=== PATIENT | male | born 1945 | race Caucasian/White ===

== ENCOUNTER 2019-06-20 03:07 | Emergency (ER) | payer OTHER, BC ==
--- OUTSIDE RECORDS SUMMARY | 2019-06-20 03:10 | XMS REPORT ---
:1945 Author Organization [facility] Address [address] [place] [address] Care Team Providers Name Role Phone Unavailable Unavailable Unavailable Payers Payer Name Policy Type Policy Number Effective Date Expiration Date Problems This patient has no known problems. Allergies, Adverse Reactions, Alerts This patient has no known allergies or adverse reactions. Medications This patient has no known medications. Results Test Description Test Time Test Comments Text Results Atomic Results Result Comments - MRI C-SPINE W/O CONT 2019-05-13 14:18:00 Patient Name: KEVIN HANDY Unit No: [id number] EXAMS: CPT CODE: [id number] MRI C-SPINE W/O CONT 77290 DIAGNOSIS: 1. At C2-3 there is no evidence for disc bulge or herniation, bony canal or foraminal stenosis. 2. At C3-4 there is 2 mm of disc bulging with mild left and moderate right foraminal narrowing. Bilateral facet degeneration is present greater on the left. The canal is stenotic with an AP diameter of 10 mm. 3. At C4-5 there is 2 mm of disc bulging and mildly increased T2-weighted cord signal consistent with myelomalacia. No foraminal narrowing is seen. The canal is stenotic with an AP diameter of 11 mm. Asymmetric right facet degeneration is present. 4. At C5-6 there is endplate spur formation and disc bulging with mild foraminal narrowing. The canal is stenotic with an AP diameter of 11 mm. 5. At C6-7 there is 3 mm of disc bulging impinging on the cord with moderate bilateral foraminal narrowing. The canal is stenotic with an AP diameter of 11 mm. 6. At C7-T1 there is no evidence for disc bulge or herniation, bony canal or foraminal stenosis. COMMENT: COMPARISON: No prior exams available. Scans were performed in the sagittal and axial planes utilizing T1, gradient echo, T2 and inversion recovery images. Endplate and disc degeneration is seen from C5 to C7. The remaining solid desiccated. Mild abnormal cord signal is seen as noted. The cord appears normal in size. at 1418 Reported and signed by: Dominick Lipscomb MD CC: Bettie Jacobo M.D. Technologist: CHINA RANGEL. RT(R) Transcribed D/ (0853) Ana Luisa [facility] NAME: KEVIN HANDY [address] [facility] PHYS: Tremayne Aranda MD : 1945 AGE: 74 SEX: M [place] [address] LOC: Y.MRI PHONE #: [phone] EXAM DATE: 05/13/2019 STATUS: REG CLI FAX #: [phone] RAD #: D/C DT PAGE 1 Signed Report Patient Name: KEVIN HANDY Unit No: [id number] EXAMS: CPT CODE: [id number] MRI C-SPINE W/O CONT [id number] <Continued> Orig Print D/T: S: 05/13/2019 (6880) [facility] NAME: KEVIN HANDY [address] [facility] PHYS: Tremayne Aranda MD : 1945 AGE: 74 SEX: M [place] [address] LOC: Y.MRI PHONE #: [phone] EXAM DATE: 05/13/2019 STATUS: REG CLI FAX #: [phone] RAD #: D/C DT PAGE 2 Signed Report
[2019-06-20 03:29] LABS: Basophils % 1.2 % (0-1.3); Hematocrit 46.5 % (39.6-49.0); Lymphocytes % 29.7 % (15.3-44.8); MPV 8.7 fL (7.6-11.3)
[2019-06-20] MEDS ORDERED: MORPHINE 4 MG/ML SYR ONE ×2 (03:42→04:32)
[2019-06-20] MEDS ORDERED: ONDANSETRON 4 MG/2 ML VIAL ONE (03:42)
[2019-06-20 03:56] LABS: Albumin 3.4 g/dL (3.4-5.0); Bilirubin Direct 0.2 mg/dL (0-0.2); Bilirubin Total 0.4 mg/dL (0.2-1.0); Potassium 3.6 mmol/L (3.5-5.1); Protein, Total 6.8 g/dL (6.4-8.2)
[2019-06-20 05:08] LABS: Urine Appearance TURBID; Urine Blood 3+ (NEG); Urine Color RED; Urine Glucose NEGATIVE (NEG); Urine Protein 2+ (NEG); Urine Specific Gravity 1.025 (1.005-1.030)
[2019-06-20] MEDS ORDERED: TAMSULOSIN 0.4 MG SR CAP ONE (05:11)
[2019-06-20] MEDS ORDERED: KETOROLAC 30 MG/ML INJ ONE (05:11)
[2019-06-20] MEDS ORDERED: MAGNESIUM SULFATE 1 gm IVPB 1 GM/100 ML BAG IV ONE (05:12)
[2019-06-20 05:19] LABS: Urine Bacteria 20-50 /HPF (NONE SEEN); Urine Culture Reflex Order NOT NEEDED; Urine RBC TNTC /HPF (NONE SEEN)
--- NOTE | 2019-06-20 06:21 | ER ---
Nurse's Notes [facility] Name: Zach Hunt Age: 74 yrs Sex: Male : 1945 Arrival Date: 06/20/2019 Time: 03:12 Bed 15 Private MD: Diagnosis: Ureterolithiasis Presentation: 06/20 03:10 Presenting complaint: Patient states: I have severe lower left abdominal pain that jb4 started about an hour ago. Transition of care: patient was not received from another setting of care. Onset of symptoms was June 20, 2019. Risk Assessment: Do you want to hurt yourself or someone else? Patient reports no desire to harm self or others. Initial Sepsis Screen: Does the patient meet any 2 criteria? RR > 20 per min. Does the patient have a suspected source of infection? Yes: Acute abdominal pain. Care prior to arrival: None. 03:10 Method Of Arrival: Wheelchair jb4 03:10 Acuity: CHAYA 3 jb4 Historical: - Allergies: 03:12 No Known Allergies; jb4 - Home Meds: 03:35 pravastatin oral oral [Active]; blood pressure medication [Active]; citalopram oral jb4 [Active]; - PMHx: 03:12 Arthritis; jb4 03:35 Anxiety; Hypertension; Hyperlipidemia; jb4 - PSHx: 03:12 Knee surgery; jb4 - Immunization history:: Adult Immunizations up to date. - Social history:: Smoking status: Patient/guardian denies using tobacco, Patient uses alcohol, occasionally. - Ebola Screening: : No symptoms or risks identified at this time. - Family history:: not pertinent. - Hospitalizations: : No recent hospitalization is reported. Screenin:10 Abuse screen: Denies threats or abuse. Nutritional screening: No deficits noted. jb4 Tuberculosis screening: No symptoms or risk factors identified. Fall Risk IV access (20 points). Gait- Impaired (20 pts.). Total Hong Fall Scale indicates Low Risk Score (25-44 pts). Fall prevention measures have been instituted. Side Rails Up X 2 Placed close to Nursing Station Frequent Obs/Assesments occuring Family Present and informed to notify staff if they need to leave bedside As available Patient and Family Educated on Fall Prevention Program and strategies. Assessment: 03:10 General: Appears in no apparent distress. uncomfortable, Behavior is cooperative, jb4 anxious. Pain: Complains of pain in left lower quadrant Pain radiates to posterior aspect of left lateral abdomen Pain currently is 10 out of 10 on a pain scale. Pain began 1 hour ago. Neuro: Level of Consciousness is awake, alert, obeys commands, Oriented to person, place, time, situation. Cardiovascular: Patient's skin is warm and dry. Respiratory: Airway is patent Respiratory effort is even, unlabored, Respiratory pattern is symmetrical, tachypnea. GI: Reports lower abdominal pain, constipation, nausea. : No signs and/or symptoms were reported regarding the genitourinary system. EENT: No signs and/or symptoms were reported regarding the EENT system. Derm: Skin is intact, Skin is pink, warm \T\ dry. Musculoskeletal: Circulation, motion, and sensation intact. Range of motion: intact in all extremities. 04:10 Reassessment: Patient appears in no apparent distress at this time. Patient and/or jb4 family updated on plan of care and expected duration. Pain level reassessed. Patient is alert, oriented x 3, equal unlabored respirations, skin warm/dry/pink. Pt is back from CT reports feeling better but still very uncomfortable and in pain, asked for more pain medication. Provider notified, see MAR for orders. 05:04 Reassessment: Patient appears in no apparent distress at this time. Patient and/or jb4 family updated on plan of care and expected duration. Pain level reassessed. Patient is alert, oriented x 3, equal unlabored respirations, skin warm/dry/pink. Patient states feeling better. 06:05 Reassessment: Patient appears in no apparent distress at this time. Patient and/or jb4 family updated on plan of care and expected duration. Pain level reassessed. Patient is alert, oriented x 3, equal unlabored respirations, skin warm/dry/pink. Patient states feeling better. 06:37 Reassessment: Patient appears in no apparent distress at this time. Patient and/or jb4 family updated on plan of care and expected duration. Pain level reassessed. Patient is alert, oriented x 3, equal unlabored respirations, skin warm/dry/pink. PT assisted to his vehicle via wheelchair, discharged home with , pt and verbalized understanding of d/c and follow up instructions. Patient states feeling better. Vital Signs: 03:12 BP 152 / 64; Pulse 59; Resp 24; Temp 97.2(O); Pulse Ox 100% on R/A; Weight 113.4 kg jb4 (R); Height 6 ft. 1 in. (185.42 cm); Pain 10/10; 04:05 BP 138 / 71; Pulse 61; Resp 20; Pulse Ox 100% on R/A; jb4 05:04 BP 131 / 62; Pulse 61; Resp 18; Pulse Ox 100% on R/A; jb4 06:00 BP 119 / 71; Pulse 61; Resp 18; Pulse Ox 100% on R/A; jb4 03:12 Body Mass Index 32.98 (113.40 kg, 185.42 cm) jb4 ED Course: 03:10 Demario Connor MD is Attending Physician. rn 03:10 Ethan Hurt, SANJEEV is Primary Nurse. jb4 03:10 Patient has correct armband on for positive identification. Bed in low position. Call jb4 light in reach. Side rails up X 1. Pulse ox on. NIBP on. 03:11 Triage completed. jb4 03:12 Patient arrived in ED. ds1 03:12 Arm band placed on left wrist. jb4 03:20 Initial lab(s) drawn, by me, sent to lab. Inserted saline lock: 20 gauge in right jb4 antecubital area, using aseptic technique. Blood collected. 04:10 CT Stone Protocol In Process Unspecified. EDMS 06:20 Memo Pablo MD is Referral Physician. rn 06:37 No provider procedures requiring assistance completed. IV discontinued, intact, jb4 bleeding controlled, No redness/swelling at site. Pressure dressing applied. Administered Medications: 03:28 Drug: Zofran 4 mg Route: IVP; Site: right antecubital; jb4 03:50 Follow up: Response: No adverse reaction; Nausea is decreased jb4 03:30 Drug: morphine 4 mg Route: IVP; Site: right antecubital; jb4 04:00 Follow up: Response: No adverse reaction; Pain is decreased jb4 04:19 Drug: morphine 4 mg Route: IVP; Site: right antecubital; jb4 04:40 Follow up: Response: No adverse reaction; Pain is decreased jb4 05:00 Drug: TORadol - Ketorolac 15 mg Route: IVP; Site: right antecubital; jb4 05:30 Follow up: Response: No adverse reaction; Pain is decreased jb4 05:00 Drug: Flomax 0.4 mg Route: PO; jb4 06:07 Follow up: Response: No adverse reaction jb4 05:02 Drug: Magnesium Sulfate 1 grams Route: IVPB; Infused Over: 1 hrs; Site: right jb4 antecubital; 06:02 Follow up: Response: No adverse reaction; IV Status: Completed infusion; IV Intake: jb4 100ml Intake: 06:02 IV: 100ml; Total: 100ml. jb4 Outcome: 06:21 Discharge ordered by . rn 06:37 Discharged to home via wheelchair, with significant other. jb4 06:37 Condition: stable 06:37 Discharge instructions given to patient, significant other, Instructed on discharge instructions, follow up and referral plans. medication usage, Demonstrated understanding of instructions, follow-up care, medications, Prescriptions given X 5 06:39 Patient left the ED. jb4 Signatures: Dispatcher [employer] [facility] Megan Cohen ds1 Demario Connor MD MD rn Bryson, James, RN RN jb4
--- NOTE | 2019-06-20 06:21 | EDPHYS ---
Physician Documentation [facility] Name: Zach Hunt Age: 74 yrs Sex: Male : 1945 Arrival Date: 06/20/2019 Time: 03:12 Bed 15 Private MD: ED Physician Demario Connor HPI: 06/20 03:12 This 74 yrs old Male presents to ER via Wheelchair with complaints of rn Abdominal Pain. 03:12 The patient presents with abdominal pain in the left lower quadrant. Onset: The rn symptoms/episode began/occurred 1 hour(s) ago. The symptoms do not radiate. Associated signs and symptoms: none. Modifying factors: The symptoms are alleviated by nothing, the symptoms are aggravated by nothing. Severity of pain: At its worst the pain was moderate in the emergency department the pain is unchanged. The patient has not experienced similar symptoms in the past. The patient has not recently seen a physician. Sudden onset left abd pain, began 1 hour MILL WORK, no trauma, no vomiting/diarrhea.. Historical: - Allergies: 03:12 No Known Allergies; jb4 - Home Meds: 03:35 pravastatin oral oral [Active]; blood pressure medication [Active]; citalopram oral jb4 [Active]; - PMHx: 03:12 Arthritis; jb4 03:35 Anxiety; Hypertension; Hyperlipidemia; jb4 - PSHx: 03:12 Knee surgery; jb4 - Immunization history:: Adult Immunizations up to date. - Social history:: Smoking status: Patient/guardian denies using tobacco, Patient uses alcohol, occasionally. - Ebola Screening: : No symptoms or risks identified at this time. - Family history:: not pertinent. - Hospitalizations: : No recent hospitalization is reported. ROS: 03:12 Constitutional: Negative for fever, chills, and weight loss, Eyes: Negative for injury, rn pain, redness, and discharge, Cardiovascular: Negative for chest pain, palpitations, and edema, Respiratory: Negative for shortness of breath, cough, wheezing, and pleuritic chest pain, Abdomen/GI: + LLQ abd pain Back: Negative for injury and pain, : Negative for injury, bleeding, discharge, and swelling, MS/Extremity: Negative for injury and deformity, Skin: Negative for injury, rash, and discoloration, Neuro: Negative for headache, weakness, numbness, tingling, and seizure. Exam: 03:12 Constitutional: This is a well developed, well nourished patient who is awake, alert, rn appears uncomfortable Head/Face: Normocephalic, atraumatic. Eyes: Pupils equal round and reactive to light, extra-ocular motions intact. Lids and lashes normal. Conjunctiva and sclera are non-icteric and not injected. Cornea within normal limits. Periorbital areas with no swelling, redness, or edema. Respiratory: mild tachypnea, clear bilateral breath sounds Abdomen/GI: soft, + LLQ tenderness, no masses Back: No spinal tenderness. No costovertebral tenderness. Full range of motion. MS/ Extremity: Pulses equal, no cyanosis. Neurovascular intact. Full, normal range of motion. Equal circumference. Neuro: Awake and alert, GCS 15, oriented to person, place, time, and situation. Cranial nerves II-XII grossly intact. Motor strength 5/5 in all extremities. Sensory grossly intact. Cerebellar exam normal. Normal gait. Vital Signs: 03:12 BP 152 / 64; Pulse 59; Resp 24; Temp 97.2(O); Pulse Ox 100% on R/A; Weight 113.4 kg jb4 (R); Height 6 ft. 1 in. (185.42 cm); Pain 10/10; 04:05 BP 138 / 71; Pulse 61; Resp 20; Pulse Ox 100% on R/A; jb4 05:04 BP 131 / 62; Pulse 61; Resp 18; Pulse Ox 100% on R/A; jb4 06:00 BP 119 / 71; Pulse 61; Resp 18; Pulse Ox 100% on R/A; jb4 03:12 Body Mass Index 32.98 (113.40 kg, 185.42 cm) jb4 MDM: 03:10 Patient medically screened. rn 05:24 ED course: Patient currently pain free. Will continue to observe in ER for further pain rn and need for pain medication.. 06:18 Differential diagnosis: diverticulitis, Ureterolithiasis, urinary tract infection. Data rn reviewed: vital signs, nurses notes, lab test result(s), radiologic studies, CT scan, and as a result, I will discharge patient. Counseling: I had a detailed discussion with the patient and/or guardian regarding: the historical points, exam findings, and any diagnostic results supporting the discharge/admit diagnosis, lab results, radiology results, the need for outpatient follow up, to return to the emergency department if symptoms worsen or persist or if there are any questions or concerns that arise at home. Response to treatment: the patient's symptoms have markedly improved after treatment. Special discussion: I discussed with the patient/guardian in detail that at this point there is no indication for admission to the hospital. It is understood, however, that if the symptoms persist or worsen the patient needs to return immediately for re-evaluation. Based on the history and exam findings, there is no indication for further emergent testing or inpatient evaluation. I discussed with the patient/guardian the need to see the urologist for further evaluation of the symptoms. ED course: Patient observed here, no further pain, comfortable going home, will dc home, sees Dr. Pablo, urged to return if pain worsens or unbearable. Given great response to pain medication will give trial of passage at home. . 06/20 03:11 Order name: Basic Metabolic Panel; Complete Time: 04:39 rn 06/20 03:11 Order name: CBC with Diff; Complete Time: 04:39 rn 06/20 03:11 Order name: Hepatic Function; Complete Time: 04:39 rn 06/20 03:11 Order name: Lipase; Complete Time: 04:39 rn 06/20 03:11 Order name: Urine Culture rn 06/20 03:11 Order name: CT Stone Protocol 06/20 05:06 Order name: Urinalysis W/Microscopic; Complete Time: 05:24 EDNC 06/20 03:11 Order name: IV Saline Lock; Complete Time: 03:24 rn 06/20 03:11 Order name: Labs collected and sent; Complete Time: 03:24 rn 06/20 03:11 Order name: Urine Dipstick-Ancillary (obtain specimen); Complete Time: 05:05 rn Administered Medications: 03:28 Drug: Zofran 4 mg Route: IVP; Site: right antecubital; jb4 03:50 Follow up: Response: No adverse reaction; Nausea is decreased jb4 03:30 Drug: morphine 4 mg Route: IVP; Site: right antecubital; jb4 04:00 Follow up: Response: No adverse reaction; Pain is decreased jb4 04:19 Drug: morphine 4 mg Route: IVP; Site: right antecubital; jb4 04:40 Follow up: Response: No adverse reaction; Pain is decreased jb4 05:00 Drug: TORadol - Ketorolac 15 mg Route: IVP; Site: right antecubital; jb4 05:30 Follow up: Response: No adverse reaction; Pain is decreased jb4 05:00 Drug: Flomax 0.4 mg Route: PO; jb4 06:07 Follow up: Response: No adverse reaction jb4 05:02 Drug: Magnesium Sulfate 1 grams Route: IVPB; Infused Over: 1 hrs; Site: right jb4 antecubital; 06:02 Follow up: Response: No adverse reaction; IV Status: Completed infusion; IV Intake: jb4 100ml Disposition: 06/20/19 06:21 Discharged to Home. Impression: Ureterolithiasis. - Condition is Stable. - Discharge Instructions: Kidney Stones, Dietary Guidelines to Help Prevent Kidney Stones. - Prescriptions for Zofran ODT 4 mg Oral tablet,disintegrating - place 1 tablet by TRANSLINGUAL route every 8 hours As needed For nausea as needed; 20 tablet. Ibuprofen 800 mg Oral Tablet - take 1 tablet by ORAL route every 12 hours As needed for pain as needed; take with food; 20 tablet. Tylenol- Codeine #3 300-30 mg Oral Tablet - take 2 tablets by ORAL route every 6 hours As needed For pain as needed; 30 tablet. Flomax 0.4 mg Oral Capsule, Sust. Release 24 hr - take 1 capsule by ORAL route once daily 1/2 hour following the same meal each day; take until pain free for 24 hours.; 5 capsule. Cipro 500 mg Oral Tablet - take 1 tablet by ORAL route every 12 hours for 7 days; 14 tablet. - Medication Reconciliation Form, Thank You Letter, Antibiotic Education, Prescription Opioid Use form. - Follow up: Memo Pablo MD; When: As needed; Reason: Recheck today's complaints, Re-evaluation by your physician. - Problem is new. - Symptoms have improved. Signatures: Dispatcher [employer] Demario Jesus MD MD rn Bryson, James, RN RN jb4 Corrections: (The following items were deleted from the chart) 05:06 03:13 UA MICROSCOPIC+U.LAB.BRZ ordered. [facility] 06:39 06:21 06/20/2019 06:21 Discharged to Home. Impression: Ureterolithiasis. Condition is jb4 Stable. Forms are Medication Reconciliation Form, Thank You Letter, Antibiotic Education, Prescription Opioid Use. Follow up: Memo Pablo; When: As needed; Reason: Recheck today's complaints, Re-evaluation by your physician. Problem is new. Symptoms have improved. rn
[2019-06-20 06:52] VITALS: TEMP 97.2; O2SAT 100
[2019-06-20 06:56] VITALS: BP 119/71
--- NOTE | 2019-06-21 10:42 | RAD REPORT ---
EXAM DESCRIPTION: CT - Stone Protocol - 06/20/2019 4:44 am CLINICAL HISTORY: Left abdominal pain, acute onset. COMPARISON: CT abdomen and pelvis with contrast 03/12/2013. TECHNIQUE: Axial unenhanced CT imaging of the abdomen and pelvis performed. Reformatted coronal and sagittal images reviewed. A dose reduction technique was utilized with automated exposure control according to patient size. FINDINGS: LOWER THORAX: Clear lung bases. Normal cardiac size. Calcified inferior right basilar ple ural plaques. ABDOMEN: LIVER/GALLBLADDER: The liver contains numerous scattered benign-appearing cysts. The largest is with in the inferior right lobe, 3.2 cm. A few scattered calcifications due to granulomas are also present . Normal gallbladder. SPLEEN/PANCREAS: Normal spleen and pancreas. KIDNEYS/ADRENAL GLANDS: Normal adrenal glands. Anterior right renal 4.9 cm cysts. Mild dilatation of the left renal pelvis. AP pelvis is 1.2 cm. There is left perinephric edema. Proximal left ureteral 8 mm stone. RETROPERITONEAL VESSELS/NODES: There is significant aorta atherosclerosis. No aneurysm. Normal calib er inferior vena cava. No adenopathy. BOWEL: There is a moderate hiatal hernia. Normal remaining stomach. Small bowel loops appear normal. Normal right lower quadrant appendix and colon. MESENTERY/PERITONEUM: No adenopathy or ascites. No free air. PELVIS: BLADDER: Unremarkable bladder. GENITAL ORGANS: Prostate is 5.7 x 5.6 x 4.7 cm with dystrophic calcifications. PERITONEUM: Prominent fat along the right spermatic cord. BONES AND SOFT TISSUES: Generalized moderate lumbar spondylitic change. Bony pelvis and hips are int act. IMPRESSION: 1. Left proximal ureteral 8 mm obstructing stone with mild left hydronephrosis and obstr uctive uropathy. 2. Anterior right renal parapelvic cyst. 3. Numerous hepatic cysts with granulomas. 4. Moderate hiatal hernia. 5. Prostatomegaly.. Electronically signed by: Hien Cameron DO 06/20/2019 4:40 AM CDT Due to temporary technical issues with the PACS/Fluency reporting system, reports are being signed by the in house radiologist as a courtesy to ensure prompt reporting. The interpreting radiologist is f ully responsible for the content of the report.
== END 2019-06-20 06:39 | disposition home or self-care (01) ==
LOC: ER 03:07
DX: N20.1 Calculus of ureter (principal); I10 Essential (primary) hypertension; E78.5 Hyperlipidemia, unspecified; F41.9 Anxiety disorder, unspecified
CPT/HCPCS: 96365; 87088; 85025; 81001; 87086; 80048; 36415; 80076; 83690; 76377; 74176; 96375; 99284; J3475; J2405

== ENCOUNTER 2020-01-04 06:27 | Emergency (ER) | payer OTHER, BC ==
--- OUTSIDE RECORDS SUMMARY | 2020-01-04 06:29 | XMS REPORT ---
:1945 Author [facility] Address [address] [place] [address] Care Team Providers Name Role Phone Unavailable [...] 14:18:00 Patient Name: KEVIN HANDY Unit No: [id number] EXAMS: CPT CODE: [id number] MRI C-SPINE W/O CONT 97855 DIAGNOSIS: 1. At C2-3 there is no [...] M.D. Technologist: CHINA RANGEL. RT(R) Transcribed D/ (3879) Ana Luisa [facility] NAME: KEVIN HANDY [address] [facility] PHYS: Tremayne Aranda MD : 1945 AGE: 74 SEX: M [place] [address] LOC: Y.MRI PHONE #: [phone] EXAM DATE: 05/13/2019 STATUS: REG CLI FAX #: [phone] RAD #: D/C DT PAGE 1 Signed Report Patient Name: KEVIN HANDY Unit No: [id number] EXAMS: CPT CODE: [id number] MRI C-SPINE W/O CONT [id number] <Continued> Orig Print D/T: S: 05/13/2019 (5730) [facility] NAME: KEVIN HANDY [address] [facility] PHYS: Tremayne Aranda MD : 1945 AGE: 74 SEX: M [place] [address] LOC: Y.MRI PHONE #: [phone] EXAM DATE: 05/13/2019 STATUS: REG CLI FAX #: [phone] RAD #: D/C DT PAGE 2 Signed Report
[2020-01-04 07:15] LABS: Hematocrit 38.7 % (39.6-49.0); Lymphocytes % 25.1 % (15.3-44.8); MPV 7.9 fL (7.6-11.3); RBC Red Blood Cell Count 4.04 M/uL (4.33-5.43)
[2020-01-04] MEDS ORDERED: NA CHLORIDE 0.9% 1,000 ML ONE (07:20)
[2020-01-04] MEDS ORDERED: ONDANSETRON 4 MG/2 ML VIAL ONE (07:20)
[2020-01-04] MEDS ORDERED: FENTANYL CITR 100 MCG/2 ML ONE (07:20)
[2020-01-04 07:22] LABS: Protime INR 0.94
[2020-01-04 07:33] LABS: Albumin 2.9 g/dL (3.4-5.0); Bilirubin Direct 0.3 mg/dL (0-0.2); Bilirubin Total 0.7 mg/dL (0.2-1.0); Magnesium 1.9 mg/dL (1.8-2.4); Potassium 3.6 mmol/L (3.5-5.1)
--- NOTE | 2020-01-04 07:38 | RAD REPORT ---
EXAM DESCRIPTION: RAD - Chest Single View - 01/04/2020 7:11 am CLINICAL HISTORY: CHEST PAIN Chest pain. COMPARISON: Abdomen 1 View (KUB) dated 07/05/2019; Abdomen 1 View (KUB) dated 06/28/2019; Chest Pa And Lat (2 Views) dated 06/28/2019; CHEST PA AND LAT 2 VIEW dated 09/10/2011 FINDINGS: Portable technique limits examination quality. The lungs are emphysematous but clear. The heart is normal in size. No displaced fractures. IMPRESSION: COPD.
--- NOTE | 2020-01-04 08:45 | EKG ---
Test Date: 2020-01-04 Test Time: 06:56:45 Manager Package: MARIPOSA MEASUREMENT RESULTS: Intervals: Rate: 77 MA: 160 QRSD: 98 QT: 398 QTc: 450 [place]: P: 56 MA: 160 QRS: -10 T: 51 INTERPRETIVE STATEMENTS: Normal sinus rhythm Normal ECG Compared to ECG 06/28/2019 11:02:55 No significant changes Electronically Signed On 01-04-20 08:44:47 PIPE BENDING MACHINE OPERATOR by Jl Carrillo
--- NOTE | 2020-01-04 09:05 | RAD REPORT ---
EXAM DESCRIPTION: CT - Head C Spine Cap W Con - 01/04/2020 8:00 am CLINICAL HISTORY: Trauma, head and neck injury. Chest, abdomen and pelvis pain. fall injury. AMS;Pain COMPARISON: No comparisons TECHNIQUE: CT head without contrast. CT cervical spine without contrast with coronal and sagittal reformatted images. CT chest, abdomen and pelvis with IV contrast (approximately 100 mL nonionic IV contrast) with pagan l and sagittal reformatted images of the spine. All CT scans are performed using dose optimization technique as appropriate and may include automated exposure control or mA/KV adjustment according to patient size. FINDINGS: CT HEAD WITHOUT CONTRAST: No intracranial hemorrhage, hydrocephalus or extra-axial fluid collection. Mild generalized brain atr ophy is present with mild periventricular and deep white matter chronic microvascular ischemic change s. No areas of brain edema or midline shift. The paranasal sinuses and mastoids are clear. The calvarium is intact. Left-sided scalp hematoma note d. CT CERVICAL SPINE WITHOUT CONTRAST: No fracture or subluxation. Moderate lower cervical degenerative changes are present with disc thinni ng and posterior osteophyte. The prevertebral soft tissues are normal in thickness. CT CHEST, ABDOMEN, PELVIS WITH CONTRAST: The lungs are clear.No pneumothorax or pericardial/pleural fluid. Anterolateral left rib fractures af fecting the fourth, fifth, sixth ribs are noted. No evidence of intra-abdominal visceral injury, free fluid or free air. Calcified pleural plaque is p resent. Moderate axial hiatal hernia. Benign appearing hepatic and renal cysts. A large left gluteal hematoma suspected measuring 14 x 5 cm. No hip fracture identified. No pelvic fracture seen. IMPRESSION: Minimally displaced left anterolateral rib fractures without pneumothorax. Large soft tissue hematoma left gluteal region. Left-sided scalp hematoma.
--- NOTE | 2020-01-04 09:47 | ER ---
Nurse's Notes [facility] Name: Zach Hunt Age: 74 yrs Sex: Male : 1945 Arrival Date: 01/04/2020 Time: 06:28 Bed 7 Private MD: Diagnosis: Superficial injury of head;Hematoma left buttock;Avulsion of skin left forearm ;Multiple fractures of ribs, left side Presentation: 01/04 06:32 Presenting complaint: EMS states: "pt fell and hurt his left hip and got a skin tear to jd3 his left elbow. the pt also has ETOH on bord.". Transition of care: patient was not received from another setting of care. Onset of symptoms was January 04, 2020. Risk Assessment: Do you want to hurt yourself or someone else? Patient reports no desire to harm self or others. Initial Sepsis Screen: Does the patient meet any 2 criteria? No. Patient's initial sepsis screen is negative. Does the patient have a suspected source of infection? No. Patient's initial sepsis screen is negative. Care prior to arrival: 06:32 Method Of Arrival: EMS: [facility] jd3 06:32 Acuity: CHAYA 2 jd3 06:44 Mechanism of Injury: Fall from standing position. Trauma event details: Injury occurred j in the [facility], Injury occurred: at home. Trauma Activation: Alert Physician: ED Physician; Name: Tamela; Notified At: 06:36; Arrived At: 06:36 Physician: General Surgeon; Name: ; Notified At: 06:36; Arrived At: Physician: Radiology; Name: Tatiana; Notified At: 06:36; Arrived At: 06:36 Physician: Respiratory; Name: ; Notified At: 06:36; Arrived At: Physician: Lab; Name: ; Notified At: 06:36; Arrived At: Historical: - Allergies: 06:37 No Known Allergies; jd3 - Home Meds: 06:37 BLOOD PRESSURE MEDICATION [Active]; citalopram oral [Active]; pravastatin Oral [Active];jd3 - PMHx: 06:37 Anxiety; Arthritis; Hyperlipidemia; Hypertension; jd3 - PSHx: 06:37 Knee surgery; jd3 - Immunization history:: Adult Immunizations up to date. - Coronavirus screen:: The patient has NOT traveled to [place], [place], or [place] in the past 14 days. The patient has NOT had contact with known/suspected case of Coronavirus? Proceed with normal triage procedures. - Immunization history: Last tetanus immunization: unknown. - Social history:: Smoking status: Patient denies any tobacco usage or history of. Patient uses alcohol, on a daily basis. - Ebola Screening: : Patient negative for fever greater than or equal to 101.5 degrees Fahrenheit, and additional compatible Ebola Virus Disease symptoms. Screenin:44 Abuse screen: Denies threats or abuse. Nutritional screening: No deficits noted. jd3 Tuberculosis screening: No symptoms or risk factors identified. 06:46 Fall Risk Fall in past 12 months (25 points). Ambulatory Aid- None/Bed Rest/Nurse jd3 Assist (0 pts). Gait- Normal/Bed Rest/Wheelchair (0 pts) Mental Status- Oriented to own ability (0 pts). Total Hong Fall Scale indicates Low Risk Score (25-44 pts). Fall prevention measures have been instituted. Side Rails Up X 2 Placed close to Nursing Station Frequent Obs/Assesments occuring Family Present and informed to notify staff if they need to leave bedside. Primary Survey: 06:39 NO uncontrolled hemorrhage observed. A: The patient is alert. Airway: patent. jd3 Breathing/Chest: Respiratory pattern: regular, Respiratory effort: spontaneous, unlabored, Chest inspection: symmetrical rise and fall of the chest. Circulation: Pulses: palpable right radial artery, right dorsalis pedis artery, left radial artery and left dorsalis pedis artery. Skin color: pink, Skin temperature: warm. Disability Alert. Exposure/Environment: All clothing and personal items were removed. Forensic evidence collection is not deemed to be indicated at this time. Items placed in patient belonging bag. There is no evidence of uncontrolled external bleeding. Obvious injury(ies) are noted at this time: bruising noted to left hip. skin tear noted to left elbow. 07:15 Reassessment Airway Airway Patent Oxygen No O2 Oral cavity Clear Trachea Midline jd3 Breathing/Chest Respiratory pattern Regular Respiratory effort Spontaneous Unlabored Chest inspection Symmetrical Circulation Heart rhythm Sinus rhythm Pulses Palpable Color [place] Temperature Warm Disability Alert. Secondary Survey: 06:40 HEENT: No deficits noted. Gastrointestinal: No deficits noted. : No signs and/or jd3 symptoms were reported regarding the genitourinary system. Musculoskeletal: Circulation, motion, and sensation intact. Range of motion: intact in all extremities. Assessment: 06:41 General: Appears in no apparent distress. comfortable, Behavior is calm, cooperative, jd3 appropriate for age. Pain: Complains of pain in left hip and left elbow Quality of pain is described as aching, tender. Neuro: Level of Consciousness is awake, alert, obeys commands, Oriented to person, place, time, situation. EENT: No signs and/or symptoms were reported regarding the EENT system. Cardiovascular: Denies chest pain, Capillary refill < 3 seconds Patient's skin is warm and dry. Respiratory: Airway is patent Respiratory effort is even, unlabored, Respiratory pattern is regular, symmetrical, Denies cough, shortness of breath. GI: No signs and/or symptoms were reported involving the gastrointestinal system. Patient currently denies abdominal pain, diarrhea, nausea, vomiting. : No signs and/or symptoms were reported regarding the genitourinary system. Derm: Skin is intact, Skin is dry, Skin is normal, Skin temperature is warm. Musculoskeletal: Circulation, motion, and sensation intact. Range of motion: intact in all extremities. 07:23 Reassessment: Patient appears in no apparent distress at this time. Patient and/or sg family updated on plan of care and expected duration. Pain level reassessed. pt appears intoxicated, with loud boisterous speech, pt redirected and reminded is in the hospital with other patients. 09:12 Reassessment: Patient appears in no apparent distress at this time. pt noted to have sg swelling to the left buttocks, with dark purple bruising that stretches across the lower back. 09:30 Reassessment: Patient appears in no apparent distress at this time. Brett MUÑOZ at bedside sg assessing pt back side at this time, Brett MUÑOZ performing wound care and repair to skin tear and inury to the left forearm, left elbow. Winfred ED judit assisting pt at this time. Vital Signs: 06:38 BP 148 / 122; Pulse 102; Resp 17 S; Temp 97.3(TE); Pulse Ox 97% on R/A; Weight 99.79 kg jd3 (R); Height 6 ft. 3 in. (190.50 cm) (R); Pain 3/10; 06:48 BP 101 / 55; jd3 07:35 BP 142 / 99; Pulse 92; Resp 17 S; Pulse Ox 98% on R/A; sg 08:35 BP 140 / 88; Pulse 81; Resp 18; Temp 97.7; Pulse Ox 97% on R/A; sg 09:35 BP 140 / 80 (/reg); Pulse 87 MON; Resp 17 S; Temp 97.3; Pulse Ox 98% on R/A; sg 10:10 BP 138 / 72; Pulse 82; Resp 17; Temp 97.2; Pulse Ox 98% on R/A; sg 06:38 Body Mass Index 27.50 (99.79 kg, 190.50 cm) jd3 Kiara Coma Score: 06:45 Eye Response: spontaneous(4). Verbal Response: oriented(5). Motor Response: obeys jd3 commands(6). Total: 15. 07:35 Eye Response: spontaneous(4). Verbal Response: confused(4). Motor Response: obeys sg commands(6). Total: 14. 08:35 Eye Response: spontaneous(4). Verbal Response: confused(4). Motor Response: obeys sg commands(6). Total: 14. 09:35 Eye Response: spontaneous(4). Verbal Response: confused(4). Motor Response: obeys sg commands(6). Total: 14. 10:10 Eye Response: spontaneous(4). Verbal Response: confused(4). Motor Response: obeys sg commands(6). Total: 14. Trauma Score (Adult): 06:45 Eye Response: spontaneous(1); Verbal Response: oriented(1); Motor Response: obeys jd3 commands(2); Systolic BP: > 89 mm Hg(4); Respiratory Rate: 10 to 29 per min(4); Kiara Score: 15; Trauma Score: 12 07:35 Eye Response: spontaneous(1); Verbal Response: confused(1); Motor Response: obeys sg commands(2); Systolic BP: > 89 mm Hg(4); Respiratory Rate: 10 to 29 per min(4); [place] Score: 14; Trauma Score: 12 08:35 Eye Response: spontaneous(1); Verbal Response: confused(1); Motor Response: obeys sg commands(2); Systolic BP: > 89 mm Hg(4); Respiratory Rate: 10 to 29 per min(4); Kiara Score: 14; Trauma Score: 12 09:35 Eye Response: spontaneous(1); Verbal Response: confused(1); Motor Response: obeys sg commands(2); Systolic BP: > 89 mm Hg(4); Respiratory Rate: 10 to 29 per min(4); Kiara Score: 14; Trauma Score: 12 10:10 Eye Response: spontaneous(1); Verbal Response: confused(1); Motor Response: obeys sg commands(2); Systolic BP: > 89 mm Hg(4); Respiratory Rate: 10 to 29 per min(4); [place] Score: 14; Trauma Score: 12 ED Course: 06:28 Patient arrived in ED. ds1 06:33 Brett Smith PA is PHCP. jr8 06:33 Nicanor Rapp MD is Attending Physician. jr8 06:36 Triage completed. jd3 06:39 Arm band placed on. jd3 06:44 Patient has correct armband on for positive identification. Bed in low position. Call jd3 light in reach. Side rails up X2. Adult w/ patient. 06:45 Patient maintains SpO2 saturation greater than 95% on room air. jd3 06:46 Thermoregulation: warm blanket given to patient. jd3 06:48 Francisco Javier Nieto RN is Primary Nurse. jd3 07:00 Inserted saline lock: 20 gauge in right antecubital area, using aseptic technique. jd3 Blood collected. 07:27 Primary Nurse role handed off by Francisco Javier Nieto, SANJEEV sg 07:27 Markie Fraga, SANJEEV is Primary Nurse. sg 08:06 Basic Metabolic Panel Sent. sv 08:06 CBC with Diff Sent. sv 08:06 LFT's Sent. sv 08:06 Magnesium Sent. sv 08:06 NT PRO-BNP Sent. sv 08:06 PT-INR Sent. sv 08:06 ETOH Level Sent. sv 08:06 CT Traumagram (Head C Spine CAP W Con) Sent. sv 08:07 XRAY Chest (1 view) Sent. sv 09:10 Assisted with urinal. sg 10:10 No provider procedures requiring assistance completed. IV discontinued, intact, sg bleeding controlled, No redness/swelling at site. Pressure dressing applied. Administered Medications: 07:20 Drug: fentaNYL (PF) 25 mcg Route: IVP; Site: right antecubital; sg 08:00 Follow up: Response: No adverse reaction sg 07:20 Drug: Zofran 4 mg Route: IVP; Site: right antecubital; sg 08:00 Follow up: Response: No adverse reaction sg 07:20 Drug: NS 0.9% 1000 ml Route: IV; Rate: 1000 ml; Site: right antecubital; sg Intake: 09:40 in a urinal sg Output: 09:40 Urine: 400ml (Voided); Total: 400ml. sg 09:40 in a urinal sg Outcome: 09:46 Discharge ordered by . jrNaa 10:10 Discharged to home via wheelchair, with family. sg 10:10 Condition: good 10:10 Discharge instructions given to patient, family, Instructed on discharge instructions, follow up and referral plans. no drinking with medication, no driving heavy equipment, medication usage, safety practices, wound care, Demonstrated understanding of instructions, follow-up care, medications, wound care, Prescriptions given X 3. 10:10 Patient's length of stay in the Emergency Department was greater than 2 hours. due to sg provider needing a CT read from radiologist prior to dispoPatient's length of stay extended due to 10:12 Patient left the ED. dm5 Signatures: Marisabel Retana RN RN dm5 Daphne Ordoñez RN RN sv Gay, Steven, RN RN sg Sanford, Demi ds1 Brett Smith PA PA jr8 Francisco Javier Nieto RN RN jd3 Corrections: (The following items were deleted from the chart) 06:45 06:41 General: Appears in no apparent distress. comfortable, Behavior is calm, jd3 cooperative, appropriate for age, jd3 07:15 06:41 General: Appears in no apparent distress. comfortable, Behavior is calm, jd3 cooperative, appropriate for age, Smells of alcohol, jd3
--- NOTE | 2020-01-04 09:48 | EDPHYS ---
Physician Documentation [facility] Name: Zach Hunt Age: 74 yrs Sex: Male : 1945 Arrival Date: 01/04/2020 Time: 06:28 Bed 7 Private MD: ED Physician Nicanor Rapp HPI: 01/04 07:13 This 74 yrs old Male presents to ER via EMS with complaints of Fall Injury. jr8 07:13 Details of fall: The patient fell from seated position, off the edge of a bed. Onset: jr8 The symptoms/episode began/occurred acutely, today. Associated injuries: The patient sustained injury to the head, injury to the chest, left arm. Severity of symptoms: At their worst the symptoms were moderate, in the emergency department the symptoms are unchanged. It is unknown whether or not the patient has had similar symptoms in the past. The patient has not recently seen a physician. Patient stated that he fell this morning out of bed. Stated that he is intoxicated and wants more whiskey. EMS was called by family and brought to ED. EMS stated that he has avulsion to left elbow. Family stated that he has been having back pain for some time but refuses to see anyone about it. Has been self medicated occasionally with alcohol . Historical: - Allergies: 06:37 No Known Allergies; jd3 - Home Meds: 06:37 BLOOD PRESSURE MEDICATION [Active]; citalopram oral [Active]; pravastatin Oral [Active];jd3 - PMHx: 06:37 Anxiety; Arthritis; Hyperlipidemia; Hypertension; jd3 - PSHx: 06:37 Knee surgery; jd3 - Immunization history:: Adult Immunizations up to date. - Coronavirus screen:: The patient has NOT traveled to [place], [place], or [place] in the past 14 days. The patient has NOT had contact with known/suspected case of Coronavirus? Proceed with normal triage procedures. - Immunization history: Last tetanus immunization: unknown. - Social history:: Smoking status: Patient denies any tobacco usage or history of. Patient uses alcohol, on a daily basis. - Ebola Screening: : Patient negative for fever greater than or equal to 101.5 degrees Fahrenheit, and additional compatible Ebola Virus Disease symptoms. ROS: 07:13 Eyes: Negative for injury, pain, redness, and discharge, ENT: Negative for injury, jr8 pain, and discharge, Neck: Negative for injury, pain, and swelling, Respiratory: Negative for shortness of breath, cough, wheezing, and pleuritic chest pain, Abdomen/GI: Negative for abdominal pain, nausea, vomiting, diarrhea, and constipation. 07:13 Skin: Negative for rash and discoloration. 07:13 Cardiovascular: Positive for chest pain, with movement. 07:13 Back: Positive for pain at rest, pain with movement, of the low back area. 07:13 MS/extremity: Positive for pain, of the left arm, avulsion of skin . 07:13 Neuro: Positive for headache. Exam: 07:13 Head/Face: Normocephalic, atraumatic. Eyes: Pupils equal round and reactive to light, jr8 extra-ocular motions intact. Lids and lashes normal. Conjunctiva and sclera are non-icteric and not injected. Cornea within normal limits. Periorbital areas with no swelling, redness, or edema. ENT: Nares patent. No nasal discharge, no septal abnormalities noted. Tympanic membranes are normal and external auditory canals are clear. Oropharynx with no redness, swelling, or masses, exudates, or evidence of obstruction, uvula midline. Mucous membranes moist. Neck: Trachea midline, no thyromegaly or masses palpated, and no cervical lymphadenopathy. Supple, full range of motion without nuchal rigidity, or vertebral point tenderness. No Meningismus. Cardiovascular: Regular rate and rhythm with a normal S1 and S2. No gallops, murmurs, or rubs. Normal PMI, no JVD. No pulse deficits. Respiratory: Lungs have equal breath sounds bilaterally, clear to auscultation and percussion. No rales, rhonchi or wheezes noted. No increased work of breathing, no retractions or nasal flaring. Abdomen/GI: Soft, non-tender, with normal bowel sounds. No distension or tympany. No guarding or rebound. No evidence of tenderness throughout. Skin: Warm, dry with normal turgor. Normal color with no rashes, no lesions, and no evidence of cellulitis. Neuro: Awake and alert, GCS 15, oriented to person, place, time, and situation. Cranial nerves II-XII grossly intact. Motor strength 5/5 in all extremities. Sensory grossly intact. Cerebellar exam normal. Normal gait. 07:13 Chest/axilla: Inspection: normal, Palpation: tenderness, that is moderate, of the left lateral posterior chest. 07:13 Back: pain, that is mild, of the lumbar area, left low back and right low back. 07:13 Musculoskeletal/extremity: Extremities: grossly normal except: noted in the left arm: pain, avulsion of skin to left lateral elbow region , noted in the left buttock: large bruising with hematoma formation noted to left buttock , ROM: intact in all extremities, Circulation is intact in all extremities. Sensation intact. 08:01 ECG was reviewed by the Attending Physician. jr8 Vital Signs: 06:38 BP 148 / 122; Pulse 102; Resp 17 S; Temp 97.3(TE); Pulse Ox 97% on R/A; Weight 99.79 kg jd3 (R); Height 6 ft. 3 in. (190.50 cm) (R); Pain 3/10; 06:48 BP 101 / 55; jd3 07:35 BP 142 / 99; Pulse 92; Resp 17 S; Pulse Ox 98% on R/A; sg 08:35 BP 140 / 88; Pulse 81; Resp 18; Temp 97.7; Pulse Ox 97% on R/A; sg 09:35 BP 140 / 80 (/reg); Pulse 87 MON; Resp 17 S; Temp 97.3; Pulse Ox 98% on R/A; sg 10:10 BP 138 / 72; Pulse 82; Resp 17; Temp 97.2; Pulse Ox 98% on R/A; sg 06:38 Body Mass Index 27.50 (99.79 kg, 190.50 cm) jd3 Morrison Coma Score: 06:45 Eye Response: spontaneous(4). Verbal Response: oriented(5). Motor Response: obeys jd3 commands(6). Total: 15. 07:35 Eye Response: spontaneous(4). Verbal Response: confused(4). Motor Response: obeys sg commands(6). Total: 14. 08:35 Eye Response: spontaneous(4). Verbal Response: confused(4). Motor Response: obeys sg commands(6). Total: 14. 09:35 Eye Response: spontaneous(4). Verbal Response: confused(4). Motor Response: obeys sg commands(6). Total: 14. 10:10 Eye Response: spontaneous(4). Verbal Response: confused(4). Motor Response: obeys sg commands(6). Total: 14. Trauma Score (Adult): 06:45 Eye Response: spontaneous(1); Verbal Response: oriented(1); Motor Response: obeys jd3 commands(2); Systolic BP: > 89 mm Hg(4); Respiratory Rate: 10 to 29 per min(4); Morrison Score: 15; Trauma Score: 12 07:35 Eye Response: spontaneous(1); Verbal Response: confused(1); Motor Response: obeys sg commands(2); Systolic BP: > 89 mm Hg(4); Respiratory Rate: 10 to 29 per min(4); Kiara Score: 14; Trauma Score: 12 08:35 Eye Response: spontaneous(1); Verbal Response: confused(1); Motor Response: obeys sg commands(2); Systolic BP: > 89 mm Hg(4); Respiratory Rate: 10 to 29 per min(4); Morrison Score: 14; Trauma Score: 12 09:35 Eye Response: spontaneous(1); Verbal Response: confused(1); Motor Response: obeys sg commands(2); Systolic BP: > 89 mm Hg(4); Respiratory Rate: 10 to 29 per min(4); Kiara Score: 14; Trauma Score: 12 10:10 Eye Response: spontaneous(1); Verbal Response: confused(1); Motor Response: obeys sg commands(2); Systolic BP: > 89 mm Hg(4); Respiratory Rate: 10 to 29 per min(4); Morrison Score: 14; Trauma Score: 12 Procedures: 09:42 Performed Steri-strips. Steri-stripped left lateral forearm which had avulsion of skin. jr8 Wrapped with non adherent dressing and Kerlex. Cleaned with Hibiclens . MDM: 06:33 Patient medically screened. jr8 09:42 Data reviewed: vital signs, nurses notes, lab test result(s), EKG, radiologic studies, jr8 CT scan, plain films. Data interpreted: Pulse oximetry: on room air is 97 %. Interpretation: normal. Counseling: I had a detailed discussion with the patient and/or guardian regarding: the historical points, exam findings, and any diagnostic results supporting the discharge/admit diagnosis, lab results, radiology results, the need for outpatient follow up, a family practitioner, to return to the emergency department if symptoms worsen or persist or if there are any questions or concerns that arise at home. 09:44 ED course: Long discussion about alcohol use and abuse of alcohol. Family will be george watching over patient for next several days along with . 01/04 06:48 Order name: Basic Metabolic Panel [facility] 01/04 06:48 Order name: CBC with Diff [facility] 01/04 06:48 Order name: LFT's [facility] 01/04 06:48 Order name: Magnesium [facility] 01/04 06:48 Order name: NT PRO-BNP [facility] 01/04 06:48 Order name: PT-INR [facility] 01/04 06:48 Order name: ETOH Level [facility] 01/04 07:18 Order name: CBC with Automated Diff; Complete Time: 07:53 EDMS 01/04 07:22 Order name: Glucose, Ancillary Testing; Complete Time: 07:53 EDMS 01/04 07:22 Order name: Protime (+INR); Complete Time: 07:53 EDMS 01/04 07:28 Order name: Alcohol Serum/Plasma; Complete Time: 07:53 EDMS 01/04 07:34 Order name: Basic Metabolic Panel; Complete Time: 07:53 EDMS 01/04 07:34 Order name: Liver (Hepatic) Function; Complete Time: 07:53 EDMS 01/04 07:34 Order name: NT PRO-BNP; Complete Time: 07:53 EDMS 01/04 06:48 Order name: XRAY Chest (1 view) [facility] 01/04 06:48 Order name: EKG; Complete Time: 06:49 01/04 06:48 Order name: Cardiac monitoring; Complete Time: 06:50 01/04 06:48 Order name: EKG - Nurse/Tech; Complete Time: 07:14 01/04 06:48 Order name: IV Saline Lock; Complete Time: 07:14 01/04 06:48 Order name: Labs collected and sent; Complete Time: 07:14 01/04 06:48 Order name: O2 Per Protocol; Complete Time: 06:49 01/04 06:48 Order name: O2 Sat Monitoring; Complete Time: 06:49 01/04 06:48 Order name: Glucose Level; Complete Time: 07:14 jr8 01/04 06:49 Order name: CT Traumagram (Head C Spine CAP W Con) jr8 01/04 07:34 Order name: Magnesium; Complete Time: 07:53 EDMS 01/04 07:39 Order name: RAD; Complete Time: 07:53 EDMS 01/04 09:10 Order name: CT; Complete Time: 09:42 EDMS EC:01 Rate is 77 beats/min. Rhythm is regular, Normal Sinus Rhythm. QRS Boaz is Normal. HI jr8 interval is normal at 160 msec. QRS interval is normal at 98 msec. QT interval is normal at 450 msec. No Q waves. T waves are Normal. No ST changes noted. Clinical impression: Normal ECG and No evidence of ischemia. Interpreted by me. Administered Medications: 07:20 Drug: fentaNYL (PF) 25 mcg Route: IVP; Site: right antecubital; sg 08:00 Follow up: Response: No adverse reaction sg 07:20 Drug: Zofran 4 mg Route: IVP; Site: right antecubital; sg 08:00 Follow up: Response: No adverse reaction sg 07:20 Drug: NS 0.9% 1000 ml Route: IV; Rate: 1000 ml; Site: right antecubital; sg Disposition: 10:18 Co-signature as Attending Physician, Nicanor Rapp MD I agree with the assessment and 4 plan of care. Disposition: 01/04/20 09:46 Discharged to Home. Impression: Superficial injury of head, Hematoma left buttock, Avulsion of skin left forearm , Multiple fractures of ribs, left side. - Condition is Stable. - Discharge Instructions: Head Injury, Adult, Hematoma, Rib Fracture. - Prescriptions for Robaxin 500 mg Oral Tablet - take 2 tablet by ORAL route every 6 hours As needed; 40 tablet. Tramadol 50 mg Oral Tablet - take 1 tablet by ORAL route every 8 hours as needed; 12 tablet. Keflex 500 mg Oral Capsule - take 1 capsule by ORAL route every 8 hours for 5 days; 15 capsule. - Medication Reconciliation Form, Thank You Letter, Antibiotic Education, Prescription Opioid Use form. - Follow up: Private Physician; When: 2 - 3 days; Reason: Recheck today's complaints, Continuance of care, Re-evaluation by your physician. - Problem is new. - Symptoms have improved. Signatures: Dispatcher [employer] Marisabel Caldwell RN RN dm5 Markie Fraga RN Brett Ryan PA PA jr8 Francisco Javier Nieto RN RN Nicanor Oviedo MD MD tw4 Corrections: (The following items were deleted from the chart) 09:44 07:13 Musculoskeletal/extremity: Extremities: grossly normal except: noted in the left jr8 arm: pain, avulsion of skin to left lateral elbow region , jr8 10:12 09:46 01/04/2020 09:46 Discharged to Home. Impression: Superficial injury of head; dm5 Hematoma left buttock; Avulsion of skin left forearm ; Multiple fractures of ribs, left side. Condition is Stable. Forms are Medication Reconciliation Form, Thank You Letter, Antibiotic Education, Prescription Opioid Use. Follow up: Private Physician; When: 2 - 3 days; Reason: Recheck today's complaints, Continuance of care, Re-evaluation by your physician. Problem is new. Symptoms have improved. jr8
[2020-01-06 04:01] VITALS: TEMP 97.3; O2SAT 97
[2020-01-06 04:02] VITALS: BP 101/55
== END 2020-01-04 10:12 | disposition home or self-care (01) ==
LOC: ER 06:27
DX: S22.42XA Multiple fractures of ribs, left side, initial encounter for closed fracture (principal); S51.802A Unspecified open wound of left forearm, initial encounter; S30.0XXA Contusion of lower back and pelvis, initial encounter; W06.XXXA Fall from bed, initial encounter; Y93.9 Activity, unspecified; Y92.9 Unspecified place or not applicable; I10 Essential (primary) hypertension; E78.5 Hyperlipidemia, unspecified; F41.9 Anxiety disorder, unspecified
CPT/HCPCS: 93005; 85025; 80048; 36415; 80320; 83735; 85610; 82947; 80076; 83880; 70450; 72125; 71260; 74177; 71045; Q9967; J3010; J7030; J2405; 96374; 96375; 99284

== ENCOUNTER 2023-01-28 10:24 | Emergency (ER) | payer OTHER, BC ==
--- OUTSIDE RECORDS SUMMARY | 2023-01-28 10:28 | XMS REPORT | Continuity of Care Document ---
:1945 Author Organization [facility] t Address [address] [place] [address] [place] [id number] Care Team Providers Name Role Phone Kash Masters Attending Clinician Payers Payer Name Policy Type Policy Number Effective Date Expiration Date S ource Problems Condition Condition Condition Status Onset Resolution Last Treating Co mments Source Name Details Category Date Date Treatment Clinician Date Dementia Dementia Problem Active 2023-01-11 Memoria (disorder) (disorder) 13:37:25 l Active Jose Problem 01/11/[address] [facility] Fall in Fall in Problem Active 2023-01-11 [facility] 13:37:25 l (finding) (finding) Herm chirag Active Problem 01/11/2023 [facility] [place] Hyperlipid Hyperlipi Problem Active 2023-01-11 Memoria emia demia 13:37:25 l (disorder) (disorder) He rmann Active Problem 01/11/[address] [facility] Hypertensi Hypertens Problem Active 2023-01-11 Memoria ve martin 13:37:25 l disorder, disorder, Herm chirag systemic systemic arterial arterial (disorder) (disorder) Active Problem 01/11/[address] [facility] Allergies, Adverse Reactions, Alerts Allergy Allergy Status Severity Reaction(s) Onset Inactive Treating Comm ents Source Name Type Date Date Clinician No Known No Known Active Memori a Medicati Medicati l on on Jose Harrington s s Social History Smoking Status Start Date Stop Date Source Tobacco smoking status 2023-01-08 20:31:34 2023-01-08 20:31:34 [facility] Medications Ordered Filled Start Stop Current Ordering Indication Dosage Frequency Signature Comments Components Source Medication Medication Date Date Medication? Clinician (SIG) Name Name galantamine Yes 12 mg = 1 M emoria 12 mg oral 2-15 tab, PO, l tablet 20:55: BID, # 60 Rubén n 00 tab, 3 Refill(s), Pharmacy: [facility], 185.42, cm, 01/08/23 14:41:00 PIPE [employer]EMAKER, Height, 88.182, kg, 01/08/23 14:41:00 PIPE COREMAKER, Weight Folbee oral Yes TAKE ONE Me moria tablet 2-15 (1) l 20:43: TABLET(S) Jose 00 BY MOUTH ONCE A DAY. galantamine Yes 12 mg = 1 M emoria 12 mg oral 6-09 tab, PO, l tablet 20:55: BID, # 60 Rubén n 00 tab, 3 Refill(s), Pharmacy: [facility], 180.34, cm, 03/01/21 15:34:00 CDT, Height, 94.091, kg, 03/01/21 15:34:00 CDT, Weight galantamine Yes 12 mg = 1 M emoria 12 mg oral 2-28 tab, PO, l tablet 17:48: BID, # 60 Rubén n 00 tab, 3 Refill(s), Pharmacy: [facility], 180.34, cm, 03/01/21 15:34:00 CDT, Height, 94.091, kg, 03/01/21 15:34:00 CDT, Weight Galantamine 2020-11 Yes 8 mg = 1 Me moria 8 MG Oral 2-02 tab, PO, l Tablet 21:09: BID, # 60 Rubén n [Razadyne] 00 tab, 4 Refill(s), Pharmacy: [facility], 180.34, cm, 03/01/21 15:34:00 CDT, Height, 94.091, kg, 03/01/21 15:34:00 CDT, Weight citalopram 2021-1 Yes 10 mg = 1 Me moria 10 mg oral 2-02 tab, PO, l tablet 20:53: Daily, # [place] 00 30 tab, 0 Refill(s) Prevagen 2020-11 Yes 50 Memoria 2-02 microgram, l 20:52: PO, Daily, Jose 00 0 Refill(s) Galantamine Yes 8 mg = 1 Me moria 8 MG Oral 7-20 tab, PO, l Tablet 21:19: BID, # 60 Rubén n [Razadyne] 00 tab, 4 Refill(s), Pharmacy: [facility] [place], 180.34, cm, 03/01/21 15:34:00 CDT, Height, 94.091, kg, 03/01/21 15:34:00 CDT, Weight Adult Yes See Memoria Aspirin 81 7-20 Instructio l mg oral 21:18: ns, 1 po Rubén n delayed 00 qd, 0 release Refill(s) tablet Galantamine Yes 4 mg = 1 Me moria 4 MG Oral 5-20 tab, PO, l Tablet 20:01: BID, # 60 Rubén n [Razadyne] 00 tab, 3 Refill(s), Pharmacy: [facility] [place], 180.34, cm, 03/01/21 15:34:00 CDT, Height, 94.091, kg, 03/01/21 15:34:00 CDT, Weight 24 HR Yes 7 mg = 1 Memoria Memantine 4-08 cap, PO, l hydrochlori 21:27: Daily, # He rmann de 7 MG 00 30 cap, 2 Extended Refill(s), Release Pharmacy: [facility] [place], 180.34, cm, 03/01/21 15:34:00 CDT, Height, 94.091, kg, 03/01/21 15:34:00 CDT, Weight Citalopram Yes 20 mg, PO, M emoria 4-08 Daily l 20:02: [place] 00 Famotidine Yes 20 mg = 1 Me moria 4-08 tab, PO, l 20:02: Daily, 0 [place] 00 Refill(s) Pravastatin 2021-0 Yes 20 mg = 1 M emoria 4-08 tab, PO, l 20:01: Daily [place] 00 Lisinopril Yes 2.5 mg, David chago 4-08 PO, Daily, l 20:01: 0 Jose 00 Refill(s) pravastatin Yes 20 mg = 1 M emoria 4-08 tab, PO, l 20:01: Daily [place] 00 lisinopril Yes 2.5 mg, David chago 4-08 PO, Daily, l 20:01: 0 Jose 00 Refill(s) Vital Signs Vital Name Observation Time Observation Value Comments Source Systolic (mm Hg) 2023-01-08 20:31:00 David rial [place] Diastolic (mm Hg) 2023-01-08 20:31:00 Mem orial Jose Heart Rate 2023-01-08 20:31:00 [facility] Height 2023-01-08 20:31:00 6 [ft_i] [facility] [place] Weight 2023-01-08 20:31:00 [facility] [place] BMI Calculated 2023-01-08 20:31:00 Memori al Jose Weight 2021-03-01 19:58:00 [facility] Jose BMI Calculated 2021-03-01 19:58:00 [facility] [place] Systolic (mm Hg) 2021-03-01 19:58:00 David rial Jose Diastolic (mm Hg) 2021-03-01 19:58:00 Mem orial Jose Heart Rate 2021-03-01 19:58:00 [facility] Jose Respitory Rate 2021-03-01 19:58:00 Memori al Jose Height 2021-03-01 19:58:[address] [facility] [place] Procedures Procedure Date / Time Performed Performing Clinician Sourc e Endoscopy [facility] Encounters Start End Encounter Admission Attending Care Care Encounter Source Date/Time Date/Time Type Type Clinicians Facility Department ID 2023-05-08 2023-05-08 Outpatient AL MELENDEZ [id number] Memoria 14:15:00 14:15:00 11 l [place] 2023-01-08 2023-01-09 Outpatient AL ARREOLA [id number] Memoria 20:15:00 05:59:59 Neurology 10 l [place] Jose 2023-01-08 2023-01-08 Outpatient SONYA MastersSCHER MHMISCHER [id number] 14:15:00 23:59:59 Kash Chelle Barriga 2023-01-08 2023-01-08 Outpatient MHIE MHIE [id number] Memoria 14:15:00 14:15:00 10 spencer Garcia 2022-08-01 2022-08-02 Outpatient nullFlavo MNA [id number] Memoria 20:00:00 04:59:59 r Neurology 09 spencer Garcia 2022-08-01 2022-08-01 Outpatient Guerrero MHMISCHER MISCHER [id number] 15:00:00 23:59:59 Kash 09 Linus 2022-08-01 2022-08-01 Outpatient MHIE MHIE [id number] Memoria 15:00:00 15:00:00 09 spencer Garcia 2022-05-02 2022-05-03 Outpatient nullFlavo MNA [id number] Memoria 20:45:00 04:59:59 r Neurology 08 spencer Garcia 2022-05-02 2022-05-02 Outpatient ERASTO MastersSCSCHER MISCHER [id number] 15:45:00 23:59:59 Kash 08 Linus 2022-05-02 2022-05-02 Outpatient MHIE MHIE [id number] Memoria 15:45:00 15:45:00 08 spencer Garcia 2022-04-09 2022-04-09 Ambulatory nullFlavo MNA [id number] Memoria 16:30:00 16:30:00 Pre-Reg r Neurology 07 spencer Sparrowann 2022-04-09 2022-04-09 Outpatient MHIE MHIE [id number] Memoria 11:30:00 11:30:00 07 spencer SparrowJose 2022-04-09 2022-04-09 Outpatient ERASTO MastersMISCHER MHMISCHER [id number] 11:30:00 11:30:00 Kash Jean Barriga 2022-01-21 2022-01-22 Outpatient nullFlavo MNA [id number] Memoria 17:15:00 05:59:59 r Neurology 06 spencer [place] Jose 2022-01-21 2022-01-21 Outpatient ROSIO Masters BINASCHER [id number] 11:15:00 23:59:59 Kash 06 Linus 2022-01-21 2022-01-21 Outpatient MHIE MHIE [id number] Memoria 11:15:00 11:15:00 06 spencer Garcia 2021-10-25 2021-10-26 Outpatient nullFlavo MNA [id number] Memoria 20:45:00 05:59:59 r Neurology 05 spencer Sparrowann 2021-10-25 2021-10-25 [id number] 14:45:00 23:59:59 Kash Tiny Barriga 2021-10-25 2021-10-25 Outpatient MHIE MHIE [id number] Memoria 14:45:00 14:45:00 05 spencer Garcia 2021-06-12 2021-06-13 Outpatient nullFlavo MNA [id number] Memoria 19:15:00 04:59:59 r Neurology 04 l [place] Jose 2021-06-12 2021-06-12 [facility] [id number] 14:15:00 23:59:59 Kash Maxi Barriga 2021-06-12 2021-06-12 Ambulatory nullFlavo MNA [id number] Memoria 19:15:00 19:15:00 Pre-Reg r Neurology 03 l Josef Sparrowann 2021-06-12 2021-06-12 Outpatient MHIE ERASTOIE [id number] Memoria 14:15:00 14:15:00 04 spencer Jose 2021-06-12 2021-06-12 Outpatient MHIE ERASTOIE [id number] Memoria 14:15:00 14:15:00 03 spencer SparrowJose 2021-06-12 2021-06-12 [id number] 14:15:00 14:15:00 Kash 03 Linus 2021-04-12 2021-04-13 Outpatient nullFlavo MNA [id number] Memoria 19:00:00 04:59:59 r Neurology 02 l [place] Jose 2021-04-12 2021-04-12 [id number] 14:00:00 23:59:59 Kash 02 Linus 2021-04-12 2021-04-12 Outpatient AL MELENDEZ [id number] Memoria 14:00:00 14:00:00 02 l Jose 2021-03-16 2021-03-18 Outside nullFlavo MNA [id number] Memoria 16:18:49 04:59:59 Medical r Neurology 00 l Records Josef Garcia 2021-03-16 2021-03-17 [id number] 11:18:49 23:59:59 00 2021-03-01 2021-03-02 Outpatient nullFlavo MNA [id number] Memoria 20:15:00 04:59:59 r Neurology 01 l Josef Garcia 2021-03-01 2021-03-01 Outpatient ROSIO Masters [id number] 15:15:00 23:59:59 Kash Linus Results Test Description Test Time Test Comments Results Result Comments Source - MRI C-SPINE W/O 2019-05-13 Patient Name: CONT 14:18:00 KEVIN HANDY Unit No: [id number] EXAMS: CPT CODE: [id number] MRI C-SPINE W/O CONT 51998 DIAGNOSIS: 1. At C2-3 there is no [...] M.D. Technologist: CHINA RANGEL. RT(R) Transcribed D/ (9259) Ana Luisa [facility] NAME: KEVIN HANDY [address] [facility] PHYS: Tremayne Aranda MD : 1945 AGE: 74 SEX: M [place] [address] LOC: Y.MRI PHONE #: [phone] EXAM DATE: 05/13/2019 STATUS: REG CLI FAX #: [phone] RAD #: D/C DT PAGE 1 Signed Report Patient Name: KEVIN HANDY Unit No: [id number] EXAMS: CPT CODE: [id number] MRI C-SPINE W/O CONT 02699 (Continued) Orig Print D/T: S: 05/13/2019 (1422) [facility] NAME: KEVIN HANDY JARETT [address] [facility] PHYS: Tremayne Aranda MD : 1945 AGE: 74 SEX: M [place] [address] LOC: Y.MRI PHONE #: [phone] EXAM DATE: 05/13/2019 STATUS: REG CLI FAX #: [phone] RAD #: D/C DT PAGE 2 Signed Report
[2023-01-28 11:49] LABS: Absolute Lymphocytes (CBC) 1.4 K/uL (0.7-4.9); Hematocrit 43.3 % (39.6-49.0); Lymphocytes % 14.2 % (15.3-44.8); MCV 95.4 fL (80-100); MPV 7.7 fL (7.6-11.3); RBC Red Blood Cell Count 4.53 M/uL (4.33-5.43)
[2023-01-28 11:51] LABS: Protime INR 1.06
--- NOTE | 2023-01-28 11:56 | RAD REPORT ---
EXAM DESCRIPTION: RAD - Hand Right 3 View - 01/28/2023 11:23 am CLINICAL HISTORY: Right hand pain status post injury FINDINGS: No fracture or dislocation is seen.
[2023-01-28 12:06] LABS: Potassium 4.3 mmol/L (3.5-5.1); Troponin High Sensitivity 14.4 pg/mL (<58.9)
--- NOTE | 2023-01-28 12:06 | RAD REPORT ---
EXAM DESCRIPTION: CT - Head C Spine Mpr Wo Con - 01/28/2023 11:16 am CLINICAL HISTORY: Head and neck injury status post fall. Head and neck pain COMPARISON: 2020 TECHNIQUE: Computed axial tomography of the head and cervical spine was obtained. Sagittal and coronal reconstruction was performed. All CT scans are performed using dose optimization technique as appropriate and may include automated exposure control or mA/KV adjustment according to patient size. FINDINGS: An intracranial bleed is not seen. The ventricles are normal in caliber. No significant hypodensity within the brain. An extra-axial fluid collection is not noted. Fluid within the sinuses. This probably indicates acute sinusitis A cervical fracture is not visualized. No dislocation is noted. Moderate spondylosis mid and distal c ervical spine IMPRESSION: No acute intracranial abnormality is seen. A cervical fracture is not visualized. If the patient continues to have symptoms to suggest intracranial /spinal cord pathology then MRI wou ld be recommended
--- NOTE | 2023-01-28 12:35 | RAD REPORT ---
EXAM DESCRIPTION: Jermain Single View01/28/2023 11:21 am CLINICAL HISTORY: Chest pain COMPARISON: 2019 FINDINGS: The lungs appear clear of acute infiltrate. The heart is normal size IMPRESSION: No acute abnormalities displayed
[2023-01-28] MEDS ORDERED: LIDOCAINE 1% W/EPI 1:100,000 50 ML MDV ONE (13:30)
[2023-01-28 15:24] VITALS: TEMP 97.8
[2023-01-28 15:26] VITALS: BP 145/61; O2SAT 98
--- NOTE | 2023-01-28 17:30 | EKG ---
Test Date: 2023-01-28 Test Time: 11:56:52 Case Reviewer: DELMER MEASUREMENT RESULTS: Intervals: Rate: 59 DC: 164 QRSD: 104 QT: 428 QTc: 423 Galt: P: 41 DC: 164 QRS: -1 T: 107 INTERPRETIVE STATEMENTS: Sinus bradycardia Septal infarct, age undetermined Abnormal ECG Compared to ECG 01/04/2020 06:56:45 Myocardial infarct finding now present Sinus rhythm no longer present Electronically Signed On 01-28-23 17:30:29 [address] RECORDER by Giovanni Azevedo
--- NOTE | 2023-02-14 14:09 | ER ---
Nurse's Notes [facility] Name: Zach Hunt Age: 78 yrs Sex: Male : 1945 Arrival Date: 01/28/2023 Time: 10:31 Bed 11 Private MD: Jamar Cantu C Diagnosis: Syncope;Facial Laceration;Head Injury Presentation: 01/28 10:45 Onset of symptoms was January 28, 2023. kr3 10:52 Chief complaint: Patient states: I slipped and feel because I wasn't watching where I kr3 was going. Denies LOC, unwitnessed, Denies bloodthinners. Chief complaint:. Care prior to arrival: None. Mechanism of Injury: Fall from standing position. Trauma event details: Injury occurred in the [facility]. 10:52 Acuity: CHAYA 4 kr3 10:52 Method Of Arrival: Ambulatory kr3 10:55 Coronavirus screen: Vaccine status: Patient reports receiving the 2nd dose of the covid kr3 vaccine. Ebola Screen: Patient denies travel to an Ebola-affected area in the 21 days before illness onset. Initial Sepsis Screen: Does the patient meet any 2 criteria? No. Patient's initial sepsis screen is negative. Does the patient have a suspected source of infection? No. Patient's initial sepsis screen is negative. Risk Assessment: Do you want to hurt yourself or someone else? Patient reports no desire to harm self or others. Onset of symptoms was January 28, 2023. 11:19 Acuity: CHAYA 3 iw Trauma Activation: Alert Physician: ED Physician; Name: ; Notified At: ; Arrived At: Physician: General Surgeon; Name: ; Notified At: ; Arrived At: Physician: Radiology; Name: ; Notified At: ; Arrived At: Physician: Respiratory; Name: ; Notified At: ; Arrived At: Physician: Lab; Name: ; Notified At: ; Arrived At: Historical: - PMHx: 16:42 Anxiety; Hyperlipidemia; Arthritis; Hypertension; kr3 - Immunization history: Last tetanus immunization:. - Social history:: Smoking status: Patient/guardian denies using tobacco, the patient reports quitting approximately 60 years ago. Screenin:05 Abuse screen: Denies threats or abuse. Tuberculosis screening: No symptoms or risk kr3 factors identified. 11:30 [facility] ED Fall Risk Assessment (Adult) History of falling in the last 3 months, kr3 including since admission Yes- single mechanical fall (1 pt). Nutritional screening: No deficits noted. Primary Survey: 11:01 NO uncontrolled hemorrhage observed. Breathing/Chest: Spontaneous respiratory effort, kr3 equal unlabored respirations, breath sounds clear bilaterally, regular pattern, symmetrical chest rise and fall. Circulation: No external hemorrhage present. Regular and strong central pulse, skin warm/dry/normal color. Disability Pupils are equal, round, reactive to light and accommodation. Exposure/Environment: There is no evidence of uncontrolled external bleeding. Obvious injury(ies) are noted at this time: laceration above right eye. 12:00 Reassessment Alertness and Airway: Awake and alert. The airway is patent. Breathing: kr3 Spontaneous respiratory effort, equal unlabored respirations, breath sounds clear bilaterally, regular pattern with symmetrical chest rise and fall. Circulation: No external hemorrhage noted. Regular and strong central pulse, skin warm/dry/normal color. Disability: Alert. Secondary Survey: 11:02 HEENT: Face Other laceration to right forehead. Gastrointestinal: No deficits noted. kr3 : No deficits noted. Musculoskeletal: No deficits noted. Assessment: 10:59 General: Appears in no apparent distress. comfortable, Behavior is calm, cooperative, kr3 appropriate for age. Pain: Complains of pain in face, right eye and left eye. Neuro: Level of Consciousness is awake, alert, obeys commands, Oriented to person, place, time, situation. EENT: No signs and/or symptoms were reported regarding the EENT system. Cardiovascular: Patient's skin is warm and dry. Respiratory: Airway is patent Respiratory effort is even, unlabored, Respiratory pattern is regular, symmetrical. GI: No signs and/or symptoms were reported involving the gastrointestinal system. : No signs and/or symptoms were reported regarding the genitourinary system. Derm: Wound noted forehead and right eye. Musculoskeletal: Circulation, motion, and sensation intact. Injury Description: Laceration sustained to forehead and right eye. 12:00 Reassessment: No changes from previously documented assessment. Patient and/or family kr3 updated on plan of care and expected duration. Pain level reassessed. 13:00 Reassessment: No changes from previously documented assessment. Patient and/or family kr3 updated on plan of care and expected duration. Pain level reassessed. 14:06 Reassessment: Patient appears in no apparent distress at this time. Patient and/or kr3 family updated on plan of care and expected duration. Pain level reassessed. Vital Signs: 11:04 BP 141 / 66; Pulse 54; Resp 17; Temp 97.8(TE); Pulse Ox 100% on R/A; Weight 85.73 kg; kr3 Height 6 ft. 3 in. ; Pain 8/10; 14:05 BP 145 / 61; Pulse 65; Resp 17; Pulse Ox 98% on R/A; kr3 11:04 Body Mass Index 23.62 (85.73 kg, 190.5 cm) kr3 11:04 Pain Scale: Adult kr3 [place] Coma Score: 11:04 Eye Response: spontaneous(4). Motor Response: obeys commands(6). Verbal Response: kr3 oriented(5). Total: 15. Trauma Score (Adult): 11:04 Eye Response: spontaneous(1); Verbal Response: oriented(1); Motor Response: obeys kr3 commands(2); Systolic BP: > 89 mm Hg(4); Respiratory Rate: 10 to 29 per min(4); Kiara Score: 15; Trauma Score: 12 ED Course: 10:31 Patient arrived in ED. mr 10:31 Jamar Cantu MD is Private Physician. mr 10:40 [facility] 10:40 Mathew Rivera DO is Attending Physician. [facility] 10:42 Attending Physician role handed off by Mathew Rivera DO inocencio 10:42 Delio Holt MD is Attending Physician. [facility] 10:52 Rolanda Oliver RN is Primary Nurse. kr3 10:59 Triage completed. kr3 11:05 Bed in low position. Call light in reach. Side rails up X 1. kr3 11:05 Arm band placed on right wrist. kr3 11:05 Patient maintains SpO2 saturation greater than 95% on room air. kr3 11:44 Inserted saline lock: 20 gauge in right antecubital area, using aseptic technique. kr3 Blood collected. 11:50 No provider procedures requiring assistance completed. kr3 14:13 Jamar Cantu MD is Referral Physician. jm 14:25 IV discontinued, intact, bleeding controlled, No redness/swelling at site. kr3 16:43 Thermoregulation: warm blanket given to patient. kr3 Administered Medications: 14:02 Drug: Lidocaine-Epinephrine Infiltration -1%: (1:100,000) 20 ml {Note: administered by pepe Lee at bedside for procedure.} Volume: 20 ml; Route: Infiltration; 16:43 Follow up: Response: No adverse reaction kr3 Medication: 16:43 VIS not applicable for this client. kr3 Intake: 16:40 PO: 0ml; Total: 0ml. kr3 Outcome: 14:13 Discharge ordered by MD. bejarano 14:25 Discharged to home ambulatory. kr3 14:25 Condition: stable 14:25 Discharge instructions given to patient, Instructed on discharge instructions, follow up and referral plans. Demonstrated understanding of instructions, follow-up care. 14:31 Patient left the ED. kr3 16:41 Patient's length of stay in the Emergency Department was greater than 2 hours. patient kr3 needsPatient's length of stay extended due to Signatures: Delio Holt MD MD cha Mickail, Joel, PA PA jmm Rivera, Mary mr Neeta Amado, RN SANJEEV Rolanda Oliver RN RN kr3 Corrections: (The following items were deleted from the chart) 16:40 13:30 IV discontinued, intact, bleeding controlled, No redness/swelling at site. kr3 kr3
--- NOTE | 2023-02-14 14:09 | EDPHYS ---
Physician Documentation [facility] Name: Zach Hunt Age: 78 yrs Sex: Male : 1945 Arrival Date: 01/28/2023 Time: 10:31 Bed 11 Private MD: Jamar Cantu C ED Physician Delio Holt HPI: 01/28 10:42 This 78 yrs old Male presents to ER via Ambulatory with complaints of Fall Injury, jmm Laceration To Head. 10:42 Details of fall: The patient fell from an upright position. Onset: The symptoms/episode jmm began/occurred acutely, just prior to arrival. Associated injuries: The patient sustained injury to the head. Is an 78-year-old male with history of dementia, hypertension, hyperlipidemia the presents emerged part with complaints of head injury after walking to take out the garbage. Patient states he collapsed and possibly syncopized. Denies any chest pain or shortness of breath. Family states the patient has had progressively worsening headaches over the past 2 weeks.. Historical: - PMHx: 16:42 Anxiety; Hyperlipidemia; Arthritis; Hypertension; kr3 - Immunization history: Last tetanus immunization:. - Social history:: Smoking status: Patient/guardian denies using tobacco, the patient reports quitting approximately 60 years ago. ROS: 10:42 Constitutional: Negative for fever, chills, and weight loss, Cardiovascular: Negative jmm for chest pain, palpitations, and edema, Respiratory: Negative for shortness of breath, cough, wheezing, and pleuritic chest pain. 10:42 Skin: Positive for laceration(s). 10:42 Neuro: Positive for headache, near syncope. 10:42 All other systems are negative. Exam: 10:42 Constitutional: This is a well developed, well nourished patient who is awake, alert, jmm and in no acute distress. 10:42 Eyes: EOMI, no conjunctival erythema appreciated ENT: Moist Mucus Membranes Neck: Trachea midline, Supple Chest/axilla: Normal chest wall appearance and motion. Cardiovascular: Regular rate and rhythm. No edema appreciated Respiratory: Normal respirations, no respiratory distress appreciated Abdomen/GI: Non distended Back: Normal ROM Skin: General appearance color normal 10:42 Head/face: 3 cm laceration noted to the right side of the forehead. 10:42 Neuro: Orientation: is normal, Mentation: is normal, Memory: is normal. 10:42 Psych: Behavior/mood is pleasant, cooperative. Vital Signs: 11:04 BP 141 / 66; Pulse 54; Resp 17; Temp 97.8(TE); Pulse Ox 100% on R/A; Weight 85.73 kg; kr3 Height 6 ft. 3 in. ; Pain 8/10; 14:05 BP 145 / 61; Pulse 65; Resp 17; Pulse Ox 98% on R/A; kr3 11:04 Body Mass Index 23.62 (85.73 kg, 190.5 cm) kr3 11:04 Pain Scale: Adult kr3 [place] Coma Score: 11:04 Eye Response: spontaneous(4). Motor Response: obeys commands(6). Verbal Response: kr3 oriented(5). Total: 15. Trauma Score (Adult): 11:04 Eye Response: spontaneous(1); Verbal Response: oriented(1); Motor Response: obeys kr3 commands(2); Systolic BP: > 89 mm Hg(4); Respiratory Rate: 10 to 29 per min(4); [place] Score: 15; Trauma Score: 12 Laceration: 17:47 Wound Repair of 3cm ( 1.2in ) subcutaneous laceration to forehead. Distal jmm neuro/vascular/tendon intact. Anesthesia: Local anesthetic administered with 5 mls of 1% lidocaine w/ Epi. Wound prep: Simple cleansing with betadine by me. Skin closed with 5 5-0 Prolene using simple sutures and sterile technique. Patient tolerated well. MDM: 10:42 Patient medically screened. inocencio 17:47 Differential diagnosis: closed head injury. Data reviewed: vital signs, nurses notes, [facility] lab test result(s), EKG, radiologic studies, CT scan, plain films. I considered the following discharge prescriptions or medication management in the emergency department Medications were administered in the Emergency Department. See MAR. Independent interpretation of the following test(s) in the Emergency Department X-Ray: My interpretation is No fracture appreciated. Historians other than the Patient: , daughter. Counseling: I had a detailed discussion with the patient and/or guardian regarding: the historical points, exam findings, and any diagnostic results supporting the discharge/admit diagnosis, lab results, radiology results, the need for outpatient follow up, to return to the emergency department if symptoms worsen or persist or if there are any questions or concerns that arise at home. 01/28 11:03 Order name: Basic Metabolic Panel [facility] 01/28 11:03 Order name: CBC with Diff [facility] 01/28 11:03 Order name: PT-INR [facility] 01/28 11:03 Order name: Troponin HS [facility] 01/28 11:49 Order name: CBC with Automated Diff; Complete Time: 11:51 EDVT 01/28 11:52 Order name: Protime (+INR); Complete Time: 11:54 EDVT 01/28 12:06 Order name: Basic Metabolic Panel; Complete Time: 12:22 EDMS 01/28 12:06 Order name: Troponin High Sensitivity; Complete Time: 12:22 EDVT 01/28 11:03 Order name: XRAY Chest (1 view) [facility] 01/28 11:03 Order name: Hand Right 3 View XRAY [facility] 01/28 11:03 Order name: CT Head C Spine [facility] 01/28 11:57 Order name: RAD; Complete Time: 12:02 [facility] 01/28 12:07 Order name: CT; Complete Time: 12:22 EDVT 01/28 12:35 Order name: RAD; Complete Time: 12:59 EDVT 01/28 11:03 Order name: EKG; Complete Time: 11:04 [facility] 01/28 11:03 Order name: Cardiac monitoring; Complete Time: 11:43 [facility] 01/28 11:03 Order name: EKG - Nurse/Tech; Complete Time: 11:58 [facility] 01/28 11:03 Order name: IV Saline Lock; Complete Time: 11:43 [facility] 01/28 11:03 Order name: Labs collected and sent; Complete Time: 11:43 [facility] 01/28 11:03 Order name: O2 Per Protocol; Complete Time: 11:16 [facility] 01/28 11:03 Order name: O2 Sat Monitoring; Complete Time: 11:16 [facility] Administered Medications: 14:02 Drug: Lidocaine-Epinephrine Infiltration -1%: (1:100,000) 20 ml {Note: administered by pepe Lee at bedside for procedure.} Volume: 20 ml; Route: Infiltration; 16:43 Follow up: Response: No adverse reaction pepe Disposition: 17:47 Co-signature as Attending Physician, Mathew CHAVEZ was immediately available on-site ms3 in the Emergency Department for consultation in the care of the patient. Disposition Summary: 01/28/23 14:13 Discharge Ordered Location: Home [facility] Condition: Stable jm Diagnosis - Syncope jmm - Facial Laceration jmm - Head Injury jm Followup: jm - With: Jamar Cantu MD - When: 2 - 3 days - Reason: Recheck today's complaints, Continuance of care, Re-evaluation by your physician Discharge Instructions: - Discharge Summary Sheet jmm - Facial Laceration jmm - Syncope jm Forms: - Medication Reconciliation Form [facility] - Thank You Letter jmm - Antibiotic Education jmm - Prescription Opioid Use [facility] Signatures: Dispatcher [employer] EDMS Delio Holt MD MD cha Mickail, Joel, PA PA jmm Sims, Marcus, DO MONTANEZ ms3 Rolanda Oliver, RN RN kr3
== END 2023-01-28 14:31 | disposition home or self-care (01) ==
LOC: ER 10:24
PROC: 0HQ1XZZ Repair Face Skin, External Approach (ICD-10-PCS; principal; 2023-01-28)
DX: S01.81XA Laceration without foreign body of other part of head, initial encounter (principal); R55 Syncope and collapse; S09.90XA Unspecified injury of head, initial encounter; I10 Essential (primary) hypertension
CPT/HCPCS: 36415; 70450; 71045; 72125; 80048; 84484; 85025; 85610; 93005; 99284